=== PATIENT | male | born 1945 | race Caucasian/White ===

== ENCOUNTER 2017-01-28 13:14 | Emergency (ER) | payer MEDICARE ==
[2017-01-28 13:53] LABS: HEMOGLOBIN 12.3 gm/dl (14.0-17.5); RED BLOOD COUNT 3.97 M/UL (4.20-5.50); WHITE BLOOD COUNT 7.8 K/UL (4.5-11.0)
[2017-01-28 14:20] LABS: BUN/CREATININE RATIO 19 (0-10)
== END 2017-01-29 00:55 | disposition short-term general hospital (02) ==
LOC: ER1 13:14 → ZEROF 18:45 → ER1 18:45 → ZEROF 20:20 → ER1 01-29 00:55
PROVIDERS: Emergency Medicine
DX: I21.4 Non-ST elevation (NSTEMI) myocardial infarction (principal); I20.8 Other forms of angina pectoris; Z95.1 Presence of aortocoronary bypass graft
CPT/HCPCS: 36415; 71010; 80053; 82550; 82553; 83874; 84484; 85025; 93005; 96372; 99285; J1650; Q0162